=== PATIENT | female | born 1955 | race Caucasian/White ===

== ENCOUNTER 2020-05-22 14:57 | Observation (INO) | payer MEDICARE, OTHER ==
[~2020-05-22 14:57] MED LIST: Iopamidol-370 76% 500 ML 1 ML ONE
[2020-05-22 15:19] LABS: #Basophils 0.1 thou/uL (0.0-0.2); #Eosinphils 0.1 thou/uL (0.0-0.7); #Lymphocytes 1.5 thou/uL (1.20-3.40); #Monocytes 0.4 thou/uL (0.11-0.59); %Basophils 1.1 % (0.0-1.0); %Eosinophils 1.8 % (0.0-10.0); %Lymphocytes 29.6 % (21.0-51.0); %Monocytes 7.9 % (0.0-10.0); %Neutrophils 59.5 % (42.0-75.0); Hemoglobin 14.7 g/dL (12.0-16.0); Mean Corpuscular HGB CONC 33.4 g/dL (32.0-36.0); Mean Corpuscular Hemoglobin 31.3 pg (27.0-31.0); Mean Corpuscular Volume 93.9 fL (78.0-98.0); Mean Platelet Volume 7.7 fL (7.4-10.4); Platelet Count 231 thou/uL (130-400); RBC Distribution Width 11.5 % (11.5-14.5)
[2020-05-22 15:40] LABS: ALT (SGPT) 15 U/L (8-55); AST (SGOT) 16 U/L (5-34); Albumin 4.5 g/dL (3.4-4.8); Alkaline Phosphatase 59 U/L (40-110); Anion Gap 15 mmol/L (10-20); BUN (Urea Nitrogen) 20 mg/dL (9.8-20.1); Bilirubin, Total 0.3 mg/dL (0.2-1.2); Calc. Creatinine Clearance 0 mL/min (70-130); Calcium 9.1 mg/dL (7.8-10.44); Carbon Dioxide 24 mmol/L (23-31); Chloride 105 mmol/L (98-107); Estimated GFR-MDRD 56; Globulin 2.6 g/dL (2.4-3.5); Glucose 105 mg/dL (80-115); Potassium 4.1 mmol/L (3.5-5.1); Protein, Total 7.1 g/dL (6.0-8.3); Sodium 140 mmol/L (136-145)
[2020-05-22 16:17] LABS: Bilirubin Negative (Negative); Blood, Urine Negative (Negative); Clarity Clear (Clear); Glucose, Urine (Dipstick) Normal (Negative); Ketone, Urine Negative (Negative); Leukocyte Negative Leu/uL (Negative); Nitrite Negative (Negative); Protein, Urine (Dipstick) Negative (Neg-Trace); Specific Gravity, Urine 1.014 (1.002-1.036); Urobilinogen Normal mg/dL (Less than 2)
[2020-05-22] MEDS ORDERED: Ketorolac Tromethamine 30 MG/ML VIAL ONE (17:13)
--- NOTE | 2020-05-22 17:21 | CT ---
CT ABDOMEN AND PELVIS PERFORMED WITH CONTRAST ENHANCEMENT: History: Right lower quadrant pain that started two hours ago, now migrating to right upper quadrant. FINDINGS: The lung bases are clear. Hypodensities within the liver are statistically most likely tiny cysts. There are some fatty changes to the liver. The spleen is within normal limits of size. The pancreas and gallbladder regions appea r unremarkable. Right and left adrenal glands and right and left kidneys are normal in size. There is no renal calcul us demonstrated. Hypodensity in the lower pole of the left kidney is compatible with a cyst. There is no significant periaortic or mesenteric adenopathy. There is a moderate amount of stool present with in the colon. CT OF PELVIS PERFORMED WITH CONTRAST ENHANCEMENT: The cecum is low in position, directly abutting the sigmoid colon. It is difficult to definitely demo nstrate the appendix but I see no evidence for appendicitis. I see what I believe to be a normal appe ndix on the sagittal views. Diverticulosis of the sigmoid colon is present without inflammatory vance e. Bladder wall appears slightly thickened but this is probably on the basis of under distention. Review of osseous structures shows some arthritic change of the spine. IMPRESSION: 1. Moderate amount of stool within the colon. There is diverticulosis of the sigmoid colon. 2. No acute findings of the abdomen or pelvis. 3. Hepatic and renal cysts. POS: OFF
[2020-05-22] MEDS ORDERED: Acetaminophen 325 MG TAB PO PRN (18:09)
[2020-05-22] MEDS ORDERED: Acetaminophen 650 MG Suppository PR PRN (18:09)
[2020-05-22] MEDS ORDERED: Senokot 8.6 MG TAB PO PRN (18:13)
[2020-05-22] MEDS: Sodium Chloride 0.9% 1,000 ML IV SCH (18:30)
[2020-05-22 18:47] VITALS: BMI 26.6
[2020-05-22] MEDS: Famotidine/PF 20 mg/2ml Vial SLOW IVP SCH (21:06)
--- NOTE | 2020-05-22 21:06 | ULT ---
RENAL ULTRASOUND: History: Pain and fever. Comparison: CT study done earlier today. FINDINGS: Real-time imaging of the right and left kidneys were performed. Right kidney measures 10 cm. The left kidney is 8.9 cm. No obstruction. It is difficult to visualize the lower pole left renal cyst. It me asures in the 1.9 cm range. It is much more difficult to visualize than on the CT examination. Questi on was raised of lobulation or mass to the upper pole of the right kidney by the technologist. I do n ot appreciate any mass on the CT study and it is probably just related to slightly lobulated contour. The bladder region appears unremarkable. IMPRESSION: Left renal cyst. POS: OFF
[2020-05-22] MEDS ORDERED: Ketorolac Tromethamine 30 MG/ML VIAL IVP PRN (22:12)
[2020-05-22] MEDS ORDERED: Zolpidem Tartrate 5 MG TAB PO SCH (22:30)
[2020-05-23] MEDS: Sodium Chloride 0.9% 1,000 ML IV SCH (03:36)
[2020-05-23 05:31] LABS: #Basophils 0.1 thou/uL (0.0-0.2); #Eosinphils 0.2 thou/uL (0.0-0.7); #Lymphocytes 1.6 thou/uL (1.20-3.40); #Monocytes 0.4 thou/uL (0.11-0.59); %Basophils 1.4 % (0.0-1.0); %Lymphocytes 37.6 % (21.0-51.0); Hemoglobin 12.6 g/dL (12.0-16.0); Mean Corpuscular Hemoglobin 31.1 pg (27.0-31.0); Mean Corpuscular Volume 94.3 fL (78.0-98.0); Mean Platelet Volume 8.2 fL (7.4-10.4); Platelet Count 216 thou/uL (130-400); RBC Distribution Width 11.5 % (11.5-14.5); Red Blood Cell (RBC) Count 4.06 mill/uL (4.20-5.40); White Blood Cell (WBC) Count 4.2 thou/uL (4.8-10.8)
--- NOTE | 2020-05-23 06:04 | HP ---
TIME OF ASSESSMENT: 0 CHIEF COMPLAINT: Right-sided abdominal pain. PRIMARY CARE PHYSICIAN: Dr. Pastora Whitley. HISTORY OF PRESENT ILLNESS: Ms. Paul is a pleasant 64-year-old woman, who presents to the emergency department today after experiencing severe right lower quadrant abdominal pain that lasted approximately 1 hour and 45 minutes and started while she was sitting at her desk at work. Patient states it came on suddenly and describes it as a sharp stabbing pain in the right lower abdomen that radiated up her right side. She did not take anything for the pain and states that it remained constant. Denies any associated nausea or vomiting. States that she moved her bowels this morning and they were normal. Denies having any issues with diarrhea or constipation in recent days. Has not had any bright red blood per rectum or black-colored stools. Patient also denies having any urinary symptoms. Has not noted any changes in the color of her urine, nor changes in the frequency. Patient has not had any fevers, chills, or sweats. On arrival to the emergency department, she states she did receive pain medications and it eased her pain from a 9/10 to about a 5/10 in severity. At present, she states the discomfort is about a 2/10 in severity. She is feeling significantly better. Denies experiencing any discomfort like this in the past. EMERGENCY DEPARTMENT COURSE: In the emergency department, she underwent laboratory studies that were essentially unremarkable. There was no evidence of leukocytosis. Her LFTs were normal. Lipase was 58 and lactic acid normal at 1.8. Renal function appears essentially stable when compared to prior labs done in February 2020. BUN was 20, creatinine 0.99, and GFR 56. Patient had a urinalysis done that was unremarkable as well. This was followed by a CT of the abdomen and pelvis, which demonstrated a moderate amount of stool within the colon and evidence of diverticulosis in the sigmoid colon without any evidence of diverticulitis. She was noted to have a slight thickening of the bladder wall, felt to be associated with under distention. Her appendix was visualized, but there is no evidence of appendicitis. Kidneys appeared unremarkable and there was no mention of any noted calculi. She had hepatic and renal cysts present. Otherwise unremarkable. For her pain, the patient received 50 mg of IV Toradol, which she states helps significantly to ease her pain. She is resting comfortably without complaints at present. Case was discussed with the general surgeon rehabilitation assistant, who advised admitting the patient for continued observation with serial abdominal exams and plans to repeat laboratory studies in the morning to assess for development of leukocytosis. MEDICAL HISTORY: 1. Hypothyroidism. 2. Hyperlipidemia. 3. Anxiety. 4. Chronic back pain. PAST SURGICAL HISTORY: 1. She has denture implants. 2. History of back surgery. SOCIAL HISTORY: Patient reports smoking cigarettes in the past, but quit more than 10 years ago. Denies any current tobacco use. Denies any alcohol consumption or illicit drug use. She lives at home with her and is fully independent. ALLERGIES: REPORTS A HISTORY OF PENICILLIN ALLERGY A CHILD, WHICH SHE DESCRIBES A RASH. CURRENT MEDICATIONS: 1. Zolpidem 5 mg p.o. daily. 2. Levothyroxine 25 mcg p.o. daily. 3. Simvastatin 40 mg p.o. daily. 4. Ibuprofen 600 mg p.o. daily. 5. Fish oil 300 mg p.o. daily. 6. Multivitamin one tablet p.o. daily. 7. Elderberry 50 mg p.o. daily. 8. Glucosamine 500 mg p.o. daily. PHYSICAL EXAMINATION: GENERAL: Patient appears well developed, well nourished, is in no acute distress. She is resting comfortably in a stretcher. VITAL SIGNS: Temperature 98.3, pulse 68, blood pressure 132/102, respirations 18, and O2 saturation 97% on room air. HEENT: Normocephalic and atraumatic. Pupils equal and reactive to light. Sclerae without icterus. Oropharynx is clear. LUNGS: Clear to auscultation bilaterally without wheezes, rales, or rhonchi. CARDIAC: Regular rate and rhythm. ABDOMEN: Soft, nondistended, but with notable tenderness on deep palpation throughout the entire abdomen. The patient did have bilateral flank tenderness and some suprapubic discomfort on palpation. EXTREMITIES: No lower leg swelling or edema. NEUROLOGIC: Alert and oriented x3. SKIN: Warm and dry. Normal skin turgor. INVESTIGATIONS: As mentioned above in the HPI. IMPRESSION AND PLAN: Ms. Paul is a pleasant 64-year-old woman, who is presenting with abdominal pain, is being admitted for management of the followin. Possible appendicitis. Patient reported to have a positive Rovsing signs with severe right lower quadrant abdominal pain. However, upon examination, it appears that she has diffuse abdominal discomfort to palpation, including bilateral flank pain. CT of the abdomen demonstrated moderate amount of stool in the colon and diverticulosis, otherwise unremarkable. No evidence of urinary tract infection on urinalysis. We will continue serial abdominal exams as recommended by General Surgery and repeat laboratory studies, including CBC and LFTs in the morning. Given the bilateral flank pain, we will obtain bilateral renal ultrasound to better assess her kidneys. No indication for antibiotics at present. We will keep patient n.p.o. and continue IV fluids. For her pain, we will continue Toradol. 2. Hypothyroidism. We will resume home medications and check TSH with morning labs. 3. Hyperlipidemia. Again, we will reconcile her home medications. 4. Gastrointestinal prophylaxis. Famotidine 20 mg IV b.i.d. 5. Deep venous thrombosis prophylaxis. Patient is ambulatory. No pharmaco prophylaxis. 6. Code status. Full. Surrogate decision maker is her . Case was discussed with the attending, who agrees with the plan of care as described above. Job ID: [id number]
[2020-05-23 06:05] LABS: Lactic Acid 1.2 mmol/L (0.5-2.2)
[2020-05-23 06:15] LABS: ALT (SGPT) 10 U/L (8-55); AST (SGOT) 14 U/L (5-34); Albumin 3.6 g/dL (3.4-4.8); Alkaline Phosphatase 47 U/L (40-110); Bilirubin, Direct 0.1 mg/dL (0.1-0.3); Bilirubin, Total 0.2 mg/dL (0.2-1.2); Protein, Total 5.7 g/dL (6.0-8.3)
[2020-05-23 06:17] LABS: Anion Gap 12 mmol/L (10-20); BUN (Urea Nitrogen) 20 mg/dL (9.8-20.1); Calc. Creatinine Clearance 74 mL/min (70-130); Calcium 8.2 mg/dL (7.8-10.44); Carbon Dioxide 23 mmol/L (23-31); Chloride 110 mmol/L (98-107); Estimated GFR-MDRD 68; Glucose 96 mg/dL (80-115); Lipase 36 U/L (8-78); Potassium 3.6 mmol/L (3.5-5.1); Sodium 141 mmol/L (136-145)
[2020-05-23] MEDS ORDERED: Levothyroxine Sodium 25 MCG TAB PO SCH (09:00)
[2020-05-23] MEDS: Famotidine/PF 20 mg/2ml Vial SLOW IVP SCH (09:10)
[2020-05-23 11:38] VITALS: BP 134/75; TEMP 97.8
[2020-05-23 11:48] LABS: SARS-CoV-2 MS2 Positive; SARS-CoV-2 N Gene Negative; SARS-CoV-2 S Gene Negative; SARS-CoV-2 by NAA Not Detected (NotDetected); SARS-CoV-2 orf1ab Negative
--- NOTE | 2020-05-23 13:53 | PDOC.FMACP ---
Advance Care Planning - Problem (1) Diverticulitis Status: Acute Code(s): K57.92 - DVTRCLI OF INTEST, PART UNSP, W/O PERF OR ABSCESS W/O BLEED (2) Palliative care encounter Status: Acute Code(s): Z51.5 - ENCOUNTER FOR PALLIATIVE CARE - Note Participants: patient, palliative care Summary: Advanced Care Planning was discussed, opportunity to decline. The diagnosis, prognosis and goals of care were discussed. Appropriate forms and documentation to accomplish the goals of care were discussed. All questions were answered. Mrs Paul elected to complete MPOA, received the Directive to Physician and would like to review and further discuss with her . After MPOA completed original given to patient with a copy, copy also placed on chart for medical records. Confirmed full resuscitation status. The Palliative Care Team will be engaged to assist with completion of any outstanding forms that are needed. Time Spent (mins): 15
[2020-05-23] MEDS ORDERED: Fish Oil 1,000 MG CAP PO SCH (17:00)
[2020-05-23] MEDS ORDERED: VITAMIN E PO SCH (17:00)
[2020-05-23] MEDS ORDERED: MAG OX PO SCH (17:00)
[2020-05-23] MEDS ORDERED: Atorvastatin Calcium 20 MG TAB PO SCH (17:00)
[2020-05-23] MEDS ORDERED: ASCORBIC ACID PO SCH (17:00)
[2020-05-23] MEDS ORDERED: ELDERBERRY PO SCH (17:00)
[2020-05-23] MEDS ORDERED: ZINC SULF PO SCH (17:00)
[2020-05-23] MEDS ORDERED: CHOLECALCIFEROL PO SCH (17:00)
[2020-05-23] MEDS ORDERED: CALCIUM CARB PO SCH (17:00)
[2020-05-23] MEDS ORDERED: ZINC PO SCH (17:00)
[2020-05-23] MEDS ORDERED: Zolpidem Tartrate 5 MG TAB PO SCH (21:00)
--- NOTE | 2020-05-24 00:23 | DIS ---
DATE OF ADMISSION: 05/22/2020 DATE OF DISCHARGE: 05/23/2020 DISCHARGE DIAGNOSES: 1. Lower abdominal pain. 2. Hypothyroidism. 3. Hyperlipidemia. 4. Chronic back pain. DISCHARGE MEDICATIONS: No new discharge medications. HISTORY OF PRESENT ILLNESS AND HOSPITAL COURSE: The patient is a 64-year-old female with past medical history of hypothyroidism, hyperlipidemia, and anxiety, who presented to the hospital with complaints of right lower quadrant abdominal pain that has been persistent for about 2 hours. The patient stated that her pain started suddenly and peaks within 2 hours before starting to fade out. In the ER, CT scan of the abdomen and pelvis revealed evidence of diverticulosis in the sigmoid colon with moderate amount of stool within the colon, but no acute findings. The patient was placed in observation. On the second day of hospital stay, the patient's pain was completely relieved after she had a bowel movement. At this time, she is stable for discharge with no further recommendations. Job ID: [id number]
== END 2020-05-23 15:20 | disposition home or self-care (01) ==
LOC: ERS 14:57 → SURG A 17:46
PROVIDERS: ADMIT Internal Medicine; ATTEND Internal Medicine
DX: K57.30 Diverticulosis of large intestine without perforation or abscess without bleeding (principal); N28.1 Cyst of kidney, acquired; K76.89 Other specified diseases of liver; E03.9 Hypothyroidism, unspecified; E78.5 Hyperlipidemia, unspecified; F41.9 Anxiety disorder, unspecified; G89.29 Other chronic pain; M54.9 Dorsalgia, unspecified; Z79.899 Other long term (current) drug therapy; Z87.891 Personal history of nicotine dependence; Z88.0 Allergy status to penicillin; Z20.828 Contact with and (suspected) exposure to other viral communicable diseases
CPT/HCPCS: 74177; 76770; 80048; 80053; 80076; 81003; 83605 ×2; 83690 ×2; 83735; 85025 ×2; 90732; 94760; 96374; 99285; G0009; U0003; 36415; 87635; 90471; 96361; 96375; 96376; G0378; J1885; Q9967; S0028